=== PATIENT | female | born 1975 | race Caucasian/White ===

== ENCOUNTER 2024-12-10 09:59 | Emergency (ER) | payer OTHER, SELFPAY ==
--- NOTE | ~2024-12-10 | US_ITS ---
EXAMINATION: US TRIPLEX LOWER EXTREMITY, RIGHT CLINICAL INFORMATION: Right lower extremity pain and swelling COMPARISON: None available. TECHNIQUE: Color-flow triplex imaging with spectral analysis and compression Doppler were performed on the right lower extremity. FINDINGS: Respiratory variation, normal compression and augmented flow are noted throughout the right lower extremity. The visualized common femoral vein, superficial femoral vein, profunda femoral vein, popliteal vein and midcalf peroneal and posterior tibial venous segments show no evidence of deep venous thrombosis. There is no Gallegos's cyst. US/US venous duplex LE RT IMPRESSION: No evidence of deep venous thrombosis involving the right lower extremity. Electronically signed by: [place] Reece MD 12/10/2024 11:21 AM EDT
--- NOTE | ~2024-12-10 | XR_ITS ---
EXAMINATION: XR KNEE, RIGHT CLINICAL INFORMATION: pain COMPARISON: None available. TECHNIQUE: AP oblique and lateral views of the right knee. FINDINGS: Joint space narrowing involving mostly the medial compartment with sclerosis along the articular surface of the medial tibial plateau and medial femoral condyle. Small marginal osteophyte formation femoral condyles and tibial plateau. Posterior exostosis in the superior and inferior patella. Small joint effusion, suprapatellar bursa. No acute cortical disruption or alignment. No lytic or blastic lesions. XR/XR knee RT 4V IMPRESSION: Tricompartmental osteoarthrosis involving mostly the medial compartment. Small joint effusion, suprapatellar bursa. No acute fracture or dislocation. Electronically signed by: [place] Auguste MD 12/10/2024 11:02 AM EDT
[2024-12-10 10:21] VITALS: BP 151/102; PULSE 88; RESP 16; TEMP 36.6; O2SAT 96; BMI 38.8
--- NOTE | 2024-12-10 10:38 | ED_ITS ---
HPI - General Adult General Chief complaint: Extremity Injury, Lower Stated complaint: Athascopia, right leg pain Time Seen by Provider: 12/10/24 10:36 Source: patient Mode of arrival: ambulatory Limitations: no limitations History of Present Illness ED Provider: Joanie Best PA-C HPI narrative: Patient is a 49 year old assigned female at with a history of a right knee scope presenting to the emergency department today with right medial lower leg pain and knee pain. Patient states that over the last 2 days she has been having right knee pain and right medial lower leg pain. Patient states that she is a smoker. Patient denies any dizziness, lightheadedness, abdominal pain, nausea, vomiting, fever, chills, blurry vision, double vision, loss of vision, chest pain, difficulty breathing, shortness of breath, back pain, night sweats, pain with urination, increased urinary frequency, increased urinary urgency, blood in her urine or stool, syncope or a near syncopal episode, recent trauma or falls, bowel incontinence, bladder incontinence, or any other complaints at this time. Onset (ago): day(s) (2) Location: right and lower extremity Pain Consistency: constant Relieving factors: none Exacerbating factors: movement Associated symptoms: denies other symptoms Treatments prior to arrival: none Related Data Allergies Allergy/AdvReac Type Severity Reaction Status Date / Time minocycline Allergy Hives Verified 12/10/24 10:30 azelastine AdvReac Dizziness Verified 12/10/24 10:54 ciprofloxacin [From Cipro] AdvReac Palpitation Verified 12/10/24 10:52 s lisinopril AdvReac Dizziness Verified 12/10/24 10:53 oxybutynin AdvReac Headache Verified 12/10/24 10:53 prednisone AdvReac Palpitation Verified 12/10/24 10:54 s Review of Systems Constitutional: Constitutional: Reports no additional constitutional complaints, Denies chills, Denies fever(s) and Denies night sweats Eyes: Eyes: Reports no additional eye complaints, Denies blurry vision, Denies change in vision, Denies diplopia, Denies eye discharge, Denies loss of vision and Denies eye pain ENT: Denies dizziness Cardiovascular: Cardiovascular: Reports no additional cardiovascular complaints, Denies chest pain, Denies lightheadedness, Denies Loss of Consciousness and Denies dyspnea Respiratory: Respiratory: Reports no additional respiratory complaints and Denies dyspnea Gastrointestinal: Gastrointestinal: Reports no additional gastrointestinal complaints, Denies abdominal pain, Denies melena, Denies hematochezia, Denies change in bowel habits and Denies change in stool character Genitourinary: Genitourinary: Denies hematuria, Denies urinary frequency, Denies dysuria, Denies urinary incontinence, Denies urinary hesitancy and Denies urinary urgency Musculoskeletal: Musculoskeletal: Reports no additional musculoskeletal complaints, Denies numbness and Denies tingling Comments: right knee pain right lower leg pain Neurologic: Denies dizziness, Denies loss of vision, Denies numbness and Denies tingling Psychiatric: Psychiatric: Reports no additional psychiatric complaints Endocrine: Endocrine: Reports no additional endocrine complaints Hematologic/Lymphatic: Hematologic/Lymphatic: Reports no additional hematologic/lymphatic complaints Allergic/Immunologic: Allergic/Immunologic: Reports no additional allergic/immunologic complaints [facility] Past Medical History Attestation statement: The following information was validated with the patient. Source: old records reviewed and nursing notes reviewed Physical Exam ED Vital Signs: Vital Signs - 24 hr 12/10/24 10:21 12/10/24 12:04 Temperature 97.9 F 97.9 F Pulse Rate 88 87 Respiratory Rate 16 16 Blood Pressure 151/102 H 148/89 H Pulse Oximetry 96 97 Oxygen Delivery Method Room Air Room Air BMI result Body Mass Index 38.8 Const General: cooperative, no acute distress, alert and awake Nutritional Appearance: well nourished Orientation/consciousness: patient oriented x3 HENMT Head: Yes normal to inspection and Yes atraumatic Ears: hearing grossly normal bilaterally and external ears normal General nose exam: Normal external nose present, no nasal discharge noted and no epistaxis Face and sinus: Yes normal facial exam, No abrasion and No laceration Mouth: Normal oral and palatal mucosa present, no drooling and no muffled voice Eyes General: appearance normal, both eyes and all related structures Periorbital: periorbital findings normal Eyelids: Yes eyelids normal Conjunctivae: conjunctivae normal Pupils: Equal, round and reactive pupils present EOM: EOMs intact bilaterally Neck Neck: Yes normal visual inspection, Yes full ROM and Yes no lymphadenopathy Resp Effort & Inspection: normal respiratory effort and able to speak in complete sentences Neuro General: patient oriented x3, moves all extremities and CN's II-XI intact bilaterally Cranial nerves: Yes Equal, round and reactive pupils present Cognition (Neuro): normal cognition Extrem General: Yes normal to inspection, Yes full ROM and Yes capillary refill normal Psych Appearance: grossly normal Mental Status: mental status grossly normal Affect: normal affect Attitude: cooperative Thought process: Normal thought process present Thought content: Normal thought content present Insight: Good insight present (Psych) Medical Decision Making Medical Decision Making MDM Narrative: Patient is a 49 year old assigned female at with a history of a right knee scope presenting to the emergency department today with right medial lower leg pain and knee pain. Patient's physical exam was unremarkable. Patient's right knee x-ray showed no acute process but did show evidence of a small joint effusion and osteoarthritis. Patient's right lower leg US was negative for DVT. I explained my physical exam findings as well as all test results to the patient. I answered all questions asked by the patient. I offered the patient oral prednisone and she declined - stating she would prefer to follow up with the orthopedic team than take systemic steroids. I stressed the importance of the patient taking her medication as directed (either prescribed or as the over the counter packaging recommends). I stressed the importance of the patient following up with her primary care provider and the orthopedic team. I stressed the importance of the patient returning to the emergency department immediately if her symptoms were to worsen or if she were to develop any dizziness, shortness of breath, difficulty breathing, chest pain, blurry vision, loss of vision, nausea, vomiting, abdominal pain, fever, chills, back pain, or any other complaints. Patient verbalized agreement and understanding with this treatment plan and discharge. Differential Diagnosis Differential Diagnoses: The differential diagnosis associated with the presentation includes Right knee OA flare Right knee pain Right lower leg pain DVT Admission/Observation Consideration of admission/observation: Escalation of care including admission/observation considered Patient would have been admitted to the hospital had her work up had any findings where hospital admission was appropriate and her clinical presentation warranted hospital admission. Independent Interpretation I performed an independent interpretation of an: Plain X-Ray (Right knee) and Ultrasound (Right lower leg) Interpretation: My interpretation is in agreement with the radiologist's impression of these imaging studies. EXAMINATION: US TRIPLEX LOWER EXTREMITY, RIGHT CLINICAL INFORMATION: Right lower extremity pain and swelling COMPARISON: None available. TECHNIQUE: Color-flow triplex imaging with spectral analysis and compression Doppler were performed on the right lower extremity. FINDINGS: Respiratory variation, normal compression and augmented flow are noted throughout the right lower extremity. The visualized common femoral vein, superficial femoral vein, profunda femoral vein, popliteal vein and midcalf peroneal and posterior tibial venous segments show no evidence of deep venous thrombosis. There is no Gallegos's cyst. US/US venous duplex LE RT IMPRESSION: No evidence of deep venous thrombosis involving the right lower extremity. Electronically signed by: [place] Reece MD 12/10/2024 11:21 AM EDT RP Dictated By: North Reece MD Signed By: Electronically signed by North Reece MD 12/10/24 1121 EXAMINATION: XR KNEE, RIGHT CLINICAL INFORMATION: pain COMPARISON: None available. TECHNIQUE: AP oblique and lateral views of the right knee. FINDINGS: Joint space narrowing involving mostly the medial compartment with sclerosis along the articular surface of the medial tibial plateau and medial femoral condyle. Small marginal osteophyte formation femoral condyles and tibial plateau. Posterior exostosis in the superior and inferior patella. Small joint effusion, suprapatellar bursa. No acute cortical disruption or alignment. No lytic or blastic lesions. XR/XR knee RT 4V IMPRESSION: Tricompartmental osteoarthrosis involving mostly the medial compartment. Small joint effusion, suprapatellar bursa. No acute fracture or dislocation. Electronically signed by: [place] Auguste MD 12/10/2024 11:02 AM EDT RP Dictated By: Chico Lee MD Signed By: Electronically signed by Chico Renee MD 12/10/24 1104 Radiology Impression Discussion of test interpretation with radiology: I have reviewed the radiologist's reading. Discharge Plan Discharge Clinical Impression: Osteoarthritis of knee Patient Disposition: Home, Self-Care Instructions: Osteoarthritis (DC) Additional Instructions: Your x-ray of the right knee showed evidence of arthritis and a small joint effusion. Your right lower leg US showed no evidence of clot. Follow up with your primary care provider and the orthopedic team. Return to the emergency department immediately if your symptoms worsen or if you develop any numbness, tingling, dizziness, shortness of breath, difficulty breathing, chest pain, blurry vision, loss of vision, nausea, vomiting, abdominal pain, fever, chills, back pain, or any other complaints. Please see the information below about our Patient Portal. If you are not yet enrolled in the [facility] Patient Portal, you will receive an enrollment email invitation following your visit to any [facility] setting. You may also self-enroll in the Patient Portal by visiting our website: [email or web address] The following information is required to access the Patient Portal: - Your [facility] Medical Record Number - Your personal home email address (must match what is in your electronic medical record, Registration staff can assist with this) - Name - Date of Capabilities of the Patient Portal: - Message some providers - View upcoming appointments - Access your health summary, medical history, and visit history - View current conditions and allergies - View procedure and lab results - View your medications, including guidelines, side effects, and precautions - Complete pre-appointment questionnaires requested by your provider - Ready summary reports of your office visits and procedures To access the Patient Portal Mobile Phi, follow these directions: - Search [place] in the Phi Store or [employer] Store - Download the Phi - Search for [facility] - Enter your login/password Referrals: [facility] Family Medicine [Provider Group] (Call to establish and follow up with a primary care provider. If you already have a primary care provider, please follow up with them.) [facility] Primary [facility], [place] [Provider Group] (Call to establish and follow up with a primary care provider. If you already have a primary care provider, please follow up with them.) [facility], [place] [Provider Group] (Call to establish and follow up with a primary care provider. If you already have a primary care provider, please follow up with them.) [facility] Primary [facility], [facility] [Provider Group] (Call to establish and follow up with a primary care provider. If you already have a primary care provider, please follow up with them.) [facility] Primary Care, [facility] [Provider Group] (Call to establish and follow up with a primary care provider. If you already have a primary care provider, ple ase follow up with them.) [facility] Orthopedic Surgeons [Provider Group] (Call to establish and follow up with an orthopedic provider. ) Stand Alone Forms: Work/School Release Interventions: ED Discharge Assessment Last Done: 12/10/24 12:04 Discharge Date/Time: 12/10/24 12:08 Print Language: Turkish
[2024-12-10 12:04] VITALS: BP 148/89; PULSE 87; RESP 16; TEMP 36.6; O2SAT 97
--- OUTSIDE RECORDS SUMMARY | 2024-12-10 12:14 | XMS_ITS | Clinical Summary ---
Author Organization [facility] Address [address] [place] [address] Phone Care Team Providers Care Photo Finisher Name Role Phone Nicol Trent MD Primary Care Pr ovider Allergies Active Allergy Reactions Criticality Noted Date Comments Azelastine Dizziness Low 04/11/2018 PRURITUS, DIZZINESS WITH NASAL SPRAY Ciprofloxacin Other Low 03/06/2018 Increased heartrate Dexamethasone Itching High 04/14/2015 Lisinopril Dizziness Medium 02/01/2022 Minocycline Hcl Hives High 07/12/2005 Oxybutynin Other Low 04/14/2015 Headache, back pain Prednisone Rash High 06/13/2014 Chest pain & palpitations Sulfamethoxazole-Trimethopr im Itching High 03/27/2018 Medications azelastine (ASTELIN) 137 mcg (0.1 %) nasal spray 1 [place] by Nasal route daily. 4 Active cholecalcifero l (VITAMIN D-3) 25 mcg (1,000 unit) capsule Take 1 Cap by mouth daily. Active loratadine (CLARITIN) 10 mg tablet Take 10 mg by mouth daily. Active olopatadine (PATANASE) 0.6 % spray,non-aero raman nasal spray 2 Sprays by Nasal route 2 times daily. 4 Active amLODIPine (NORVASC) 2.5 mg tablet Take 1 tablet (2.5 mg total) by mouth 1 (one) time each day. 90 tablet 1 5 01/18/20 25 Active cromolyn (OPTICROM) 4 % ophthalmic solution INSTILL 1 DROP INTO BOTH EYES 4 TIMES DAILY. 10 mL 1 5 Active cromolyn (OPTICROM) 4 % ophthalmic solution INSTILL 1 DROP INTO BOTH EYES 4 TIMES DAILY. 10 mL 1 5 11/21/19 25 Discontinued cephalexin (KEFLEX) 500 mg capsule Take 1 capsule (500 mg total) by mouth 2 (two) times a day for 10 days. 20 each 5 12/01/19 25 Active Problems Problem Noted Date Diagnosed Date Relative polycythemia 11/20/2024 Numerous skin moles 05/15/2024 Assessment & Plan (05/15/2024 4:29 PM EST): Orders: Ambulatory referral to Dermatology; Future Bilateral kidney stones 06/16/2023 Allergic conjunctivitis 02/14/2023 Assessment & Plan (05/15/2024 4:29 PM EST): Continue cromolyn eye drops daily Fatty liver disease, nonalcoholic 12/14/2022 Assessment & Plan (05/15/2024 4:29 PM EST): Orders: Comprehensive metabolic panel; Future Ambulatory referral to Gastroenterology; Future Gallbladder polyp 12/14/2022 Assessment & Plan (05/15/2024 4:29 PM EST): US done in November showed stability Hyperlipidemia 12/14/2022 Assessment & Plan (05/15/2024 4:29 PM EST): Orders: Lipid panel with reflex to direct LDL; Future Thyroid stimulating hormone with reflex to free t4 and free t3; Future Osteoarthritis of right knee 11/14/2022 Assessment & Plan (05/15/2024 4:29 PM EST): Continue PT Class 2 obesity 10/11/2022 Abnormal uterine bleeding 04/21/2022 Overview (03/21/2024): Last Assessment & Plan: Discussed normal frequency and length of menses Counseled on the effects of stress, changes in sleep, diet, and exercise on the endocrine system GC/CT done today to r/o STI TSH ordered Pelvic ultrasound ordered to r/o structural causes. Discussed with patient potential causes of abnormal bleeding including , infection, trauma, anovulation, polyps, fibroids, coagulation defects, hyperplasia, and malignancies and importance of follow-up. She will return for endometrial biopsy. Prediabetes 11/30/2020 Assessment & Plan (05/15/2024 4:29 PM EST): Orders: Hemoglobin A1c; Future Eczema 07/17/2018 Hypertension 12/25/2017 Assessment & Plan (05/15/2024 4:29 PM EST): Orders: CBC and differential; Future Comprehensive metabolic panel; Future Thyroid stimulating hormone with reflex to free t4 and free t3; Future Female stress incontinence 03/31/2015 Overview (03/21/2024): Seeing urology Hyperactivity of bladder 03/31/2015 Snoring 08/24/2011 Overview (03/21/2024): 2-12 polysomnogram neg for MAN 04/2020 Home Sleep Study did not reveal sleep apnea or nocturnal hypoxia. Depressive disorder 05/01/2008 Allergic rhinitis 04/24/2006 Assessment & Plan (05/15/2024 4:29 PM EST): Continue patanase nasal spray PRN, loratadine and azelastine 137mcg Encounters Date Type Department Care Team Description 12/10/2024 Telephone Adult Medicine [address] [phone] Nicol Trent MD Leg Pain 11/20/2024 8:30 AM EDT Office Visit Adult Medicine [address] [phone] Gissell Echevarria PA Primary hypertension (Primary Dx); Prediabetes; Mixed hyperlipidemia; Allergic rhinitis, unspecified seasonality, unspecified trigger; Relative polycythemia; Cellulitis of earlobe, left 10/15/2024 9:45 AM EDT Office Visit [facility] [address] [place] [phone] Trey Low MD Relative polycythemia (Primary Dx) 10/01/2024 10:15 AM EDT Office Visit [facility] [address] [place] [phone] Trey Low MD Polycythemia from Last 3 Months Immunizations Name Administration Dates Next Due Hepatitis B (Ivhfxzu-H-Rcxke , Recombivax HB-Adult) 19yo and older 08/16/2023,03/15/2023,02/15/2023 Influenza Quadravalent, MDCK , 0.5ml, preservative free (Flucelvax) 6mo and older 05/11/2023,03/12/2020,04/19/2019,2017 Influenza Quadravalent, MDCK , 0.5ml, with preservative (Flucelvax) 6mo and older 04/30/2022,04/30/2021 Influenza trivalent, 0.5mL, preservative free (Fluarix; FluLaval; Fluzone) ages 6mo and older (Afluria) 3 years and older 04/17/2012 Influenza trivalent, with preservative (Fluzone; Afluria) 6mo and older 04/17/2016,06/05/2015,05/06/2014,2012,06/07/2011,07/05/2007,05/21/2006,1 Influenza, Unspecified 04/26/2023,03/26/2022,10/2020 MMR, measles mumps and rubel la Live (Priorix; M-M-R II) 12mo and older 08/06/2021,07/08/2021 Td Tetanus diptheria (Tdvax) 7yo and older 10/18/2017 Tdap Tetanus diptheria acell ular pertussis (Boostrix; Adacel) 7yo and older 07/05/2007 Varicella live (Varivax) 12m o and older 08/06/2021,07/08/2021 Surgical History Surgery Date Site/Laterality Comments OTHER SURGICAL HISTORY 06/26/2014 Right PROCEDURE: VT EXC LESION TENDON SHEATH/CAPSULE W/SYNVCT FOOT; COMMENT: Dr Pizano for right plantar fascitis OTHER SURGICAL HISTORY 06/26/2015 Left PROCEDURE: VT EXC LESION TENDON SHEATH/CAPSULE W/SYNVCT FOOT; COMMENT: left foot plantar fasciitis KNEE SURGERY 02/2022 PROCEDURE: HISTORICAL KNEE SURGERY FOOT SURGERY Bilateral plantar fascia Medical History Medical History Date Comments Allergic rhinitis due to oth er allergen 04/24/2006 DX:Allergic rhinitis due to other allergen History of gestational diabetes DX:History of gestational diabetes Essential hypertension DX:Essent ial hypertension Family History Medical History Relation Name Comments Other: Cancer (mouth) Brother thyroi d disorder, substance use Lung cancer Father Other cancer Father Lung age 62 Diabetes Paternal Grandmother Stroke Paternal Grandmother Breast cancer Neg Hx Colon cancer Neg Hx Ovarian cancer Neg Hx Uterine cancer Neg Hx Relation Name Status Comments Brother Daughter Alive A&W x 2 Father Alive high cholestero l, lobectomy due to emphysema, aaa, Maternal Grandfather Maternal Grandmother CAD Mother Alive HTN, arthritis Paternal Grandfather ? shahzad roberts WWII Paternal Grandmother [place] - an gioplasty; DMII Son Alive A&W Social History Tobacco Use Types Packs/Day Years Used Date Smoking Tobacco: Every Day Cigarettes Last attempted to quit: 09/15/2022 Smokeless Tobacco: Never Tobacco Cessation:Ready to Q uit: Not Asked; Counseling Given: Not Answered Alcohol Use Standard Drinks/Week Comments Yes 1 (1 standard drink = 0.6 oz pur e alcohol) Housing Instability Answer Date Recorde d Are you worried that in the next 2 months you may not have stable housing? No 05/15/2024 Food Access & Nutrition Answer Date Rec orded Do you have access to a vari ety of food including fruits and vegetables? Yes 05/15/2024 Health Literacy Answer Date Recorded How often do you need to hav e someone help you when you read instructions, pamphlets, or other written material from your doctor or pharmacy? Never 05/15/2024 Caregiver: How often do you need to have someone help you when you read instructions, pamphlets, or other written material from your doctor or pharmacy? Not on file 05/15/2024 Financial Risk Answer Date Recorded How hard is it for you to pa y for the very basics like food, housing, medical care, and air conditioning / heating? Not very hard 05/15/2024 Transportation Answer Date Recorded Has the lack of transportati on kept you from meetings, work, or from getting things needed for daily living? No Has the lack of transportati on kept you from medical appointments or from getting medications? No 05/15/2024 Social Isolation Answer Date Recorded How often do you feel lonely or isolated from th ose around you? Never 05/15/2024 Food Risk Answer Date Recorded Within the past 12 months we worried whether our food would run out before we got money to buy more. Never true 05/15/2024 Within the past 12 months th e food we bought just didn't last and we didn't have money to get more. Never true 05/15/2024 Dependent Care Answer Date Recorded Do you need help finding or paying for care for your loved ones. For example, childcare center administrator or elderly care for an older adult? No 05/15/2024 Education Answer Date Recorded Do you think completing more education or training, like finishing a GED, going to college, or learning a trade, would be helpful for you? No 05/15/2024 Employment and Income Answer Date Recor ded During the last four weeks, have you been actively looking for work? No 05/15/2024 Living Situation Answer Date Recorded What is your living situation? 1 07/15/2023 Comments No Sex and Gender Information Value Date Recorded Sex Assigned at Not on file Legal Sex Female 8:30 PM EST Gender Identity Not on file Sexual Orientation Not on file Obstetrics History Para Term AB IAB SAB Ectopic Multiple Livin g Live Births 3 3 3 3 Date Outcome GA Total Labor Labor/2nd/3rd Weight Sex Type Anes PTL Maxine A1 A5 Name Clin Term Term Term Last Filed Vital Signs Vital Sign Reading Time Taken Comments Blood Pressure 131/98 11/20/2024 8:18 AM EDT Pulse 102 11/20/2024 8:08 AM EDT Temperature 36.2 ??C (97.2 ??F) 11/20/2024 8:08 AM ED T Respiratory Rate 18 11/20/2024 8:08 AM EDT Oxygen Saturation 94% 11/20/2024 8:08 AM EDT Inhaled Oxygen Concentration - - Weight 116 kg (256 lb 8 oz) 11/20/2024 8:08 AM E DT Height 170.2 cm (5' 7 ) 11/20/2024 8:08 AM EDT Body Mass Index 40.17 11/20/2024 8:08 AM EDT Plan of Treatment Upcoming Encounters Date Type Department Care Team (Late st Contact Info) Description 01/03/2025 8:30 AM EDT Office Visit Adult Medicine [facility] [address] [place] [phone] Gissell Echevarria PA [address] [place] [address] 02/25/2025 9:30 AM EDT Appointment [facility] [address] [place] [phone] Eloisa Conklin MD [address] [facility] [address] [place] [address] Health Maintenance Due Date Last Done Comments Pneumococcal Vaccine: 50+ Years (1 of 2 - PCV) 1992 Zoster Vaccines (1 of 2) 10/01/2021 08/06/2021, 06/26 Colorectal Cancer Screening: Colonoscopy 06/04/2022 Depression Screening 12/21/2024 12/22/2023 Social Influencers of Health Screening 05/15/2025 05/15/2024 Hypertension/CHF/CAD Annual BMP Blood Test 11/20/2025 11/20/2024, 05/17/2024, 03/18/2024, Additional history exists Breast Cancer Screening 08/28/2026 08/29/19, 08/18/2023, 08/16/2022, Additional history exists Cervical Cancer Screening: HPV 04/21/2027 04/21/2022 DTaP,Tdap,and Td Vaccines (3 - Td or Tdap) 10/19/2027 10/18/2017, 07/05/2007 Cholesterol Screening (Lipid Panel) 05/17/2029 05/17/2024, 12/22/2023, 12/22/2023 COVID-19 Vaccine Discontinued 08/21/2020, 07/19/2020 MMR Vaccines Aged Out 08/06/2021, 07/08/2021 No lo nger eligible based on patient's age to complete this topic Varicella Vaccines Aged Out 08/06/2021, 07/08/2021 No longer eligible based on patient's age to complete this topic Hepatitis B Vaccines Completed 08/16/2023, 03/15/2023, 02/15/2023 Influenza Vaccine Completed 03/18/2024, , 04/26/2023, Additional history exists HIV Screening Completed 05/17/2024 Hepatitis C Screening Completed 05/17/2024 HIB Vaccines Aged Out No longer eligi ble based on patient's age to complete this topic HPV Vaccines Aged Out No longer eligi ble based on patient's age to complete this topic Hepatitis A Vaccines Aged Out No long er eligible based on patient's age to complete this topic IPV Vaccines Aged Out No longer eligi ble based on patient's age to complete this topic Meningococcal ACWY Vaccine Aged Out N o longer eligible based on patient's age to complete this topic Meningococcal B Vaccine Aged Out No l onger eligible based on patient's age to complete this topic Pneumococcal Vaccine: Pediatrics (0 to 5 Years) and At-Risk Patients (6 to 64 Years) Discontinued RSV Immunization Patients Under 20 months Aged Out No longer eligible based on patient's age to complete this topic Procedures Procedure Name Priority Date/Time Associated Diagnosis Comments BASIC METABOLIC PANEL Routine 11/20/2024 9:06 AM EDT Primary hypertension HEMOGLOBIN A1C Routine 11/20/2024 9:06 AM EDT Prediabetes CBC WITH AUTO DIFFERENTIAL Routine 10/01/2024 10:52 AM EDT Polycythemia RETICULOCYTE COUNT Routine 10/01/2024 10 :52 AM EDT Polycythemia ERYTHROPOIETIN Routine 10/01/2024 10:52 AM EDT Polycythemia CBC AND DIFFERENTIAL Routine 10/01/2024 10:52 AM EDT Polycythemia MG MAMMO DIGITAL SCREENING W LEN BILAT Routine 08/28/2024 8:30 AM EST Encounter for screening mammogram for breast cancer HEPATITIS C ANTIBODY Routine 05/17/2024 8:00 AM EST Need for hepatitis C screening test HIV 1, 2 ANTIBODY, P24 ANTIGEN WITH REFLEX TO DIFFERENTIATION Routine 05/17/2024 8:00 AM EST Encounter for screening for HIV LIPID PANEL WITH REFLEX TO DIRECT LDL Routine 05/17/2024 8:00 AM EST Dyslipidemia DEPRESSION SCREENING Routine 12/22/2023 HPV Routine 04/21/2022 from Last 3 Months or Most Recently Relevant to Health Maintenance Results * Hemoglobin A1c (11/20/2024 9:06 AM EDT) Hemoglobin A1C 5.7 <6.5 % LAB CHEMISTRY METHOD 11/20/2024 10:24 AM EDT [facility] Mean Bld Glu Estim. 117 mg/dL LAB CHEMISTRY METHOD 11/20/2024 10:24 AM EDT [facility] Blood Venous blood specimen / Unknown Venipuncture / Unknown 11/20/2024 9:06 AM EDT 11/20/2024 9:06 AM EDT us Gissell MOSCOSO LAB BLOOD ORDERABLES Final Re sult [facility] [address] [place] [address], [place] [phone] * (ABNORMAL) Basic metabolic panel (11/20/2024 9:06 AM EDT) Sodium 138 133 - 145 mmol/L LAB CHEMISTRY METHOD 11/20/2024 5:25 PM EDT [facility] Potassium 4.4 3.5 - 5.5 mmol/L LAB CHEMISTRY METHOD 11/20/2024 5:25 PM EDT [facility] Chloride 107 96 - 110 mmol/L LAB CHEMISTRY METHOD 11/20/2024 5:25 PM [facility] CO2 23 21 - 32 mmol/L LAB CHEMISTRY METHOD 11/20/2024 5:25 PM [facility] Anion Gap 8 3 - 11 LAB [facility]STR[facility]/20[facility]24 [facility] Glucose 117(H) 70 - 100 mg/dL LAB CHEMISTRY METHOD 11/20/2024 5:25 PM [facility] BUN 9 5 - 25 mg/dL LAB CHEMISTRY METHOD 11/20/2024 5:25 PM [facility] Creatinine 0.74 0.50 - 1.10 mg/dL LAB CHEMISTRY METHOD 11/20/2024 5:25 PM [facility] eGFR 98 >=60 mL/min/1. 73m2 LAB CHEMISTRY METHOD 11/20/2024 5:25 PM T [facility] Comment:Calculation based on the Chronic Kidney Disease Epidemiology Collaboration (CKD-EPI) equation refit without adjustment for race. BUN/Creatinine Ratio 12.2 LAB CHEMISTRY METHOD 11/20/2024 5:25 PM [facility] Calcium 9.3 8.5 - 10.5 mg/dL LAB CHEMISTRY METHOD 11/20/2024 5:25 PM [facility] Blood Venous blood specimen / Unknown Venipuncture / Unknown 11/20/2024 9:06 AM EDT 11/20/2024 9:06 AM EDT us Gissell MOSCOSO LAB BLOOD ORDERABLES Final Re sult [facility] [address] [place] [address], * (ABNORMAL) CBC auto differential (10/01/2024 10:52 AM EDT) [facility] WBC 9.7 4.8 - 10.8 K/mcL LAB HEMETOLOGY METHOD 10/01/2024 1:51 PM [facility] RBC 5.50(H) 3.80 - 4.80 M/mcL LAB HEMETOLOGY METHOD 10/01/2024 1:51 PM [facility] Hemoglobin 16.2(H) 11.5 - 16.0 g/dL LAB HEMETOLOGY METHOD 10/01/2024 1:51 PM [facility] Hematocrit 49.8(H) 35.0 - 47.0 % LAB HEMETOLOGY METHOD 10/01/2024 1:51 PM [facility] MCV 90.1 79.0 - 98.0 FL LAB HEMETOLOGY METHOD 10/01/2024 1:51 PM [facility] MCH 29.3 27.0 - 32.0 pcg LAB HEMETOLOGY METHOD 10/01/2024 1:51 PM [facility] MCHC 32.5 32.0 - 37.0 g/dL LAB HEMETOLOGY METHOD 10/01/2024 1:51 PM [facility] RDW 12.1 11.0 - 15.0 % LAB HEMETOLOGY METHOD 10/01/2024 1:51 PM [facility] Platelets 301 130 - 400 K/mcL LAB HEMETOLOGY METHOD 10/01/2024 1:51 PM [facility] MPV 9.9 7.0 - 11.0 FL LAB HEMETOLOGY METHOD 10/01/2024 1:51 PM [facility] NRBC 0.0 <1.0 % LAB HEMETOLOGY METHOD 10/01/2024 1:51 PM [facility] NRBC Absolute 0.00 <0.10 K/mcL LAB HEMETOLOGY METHOD 10/01/2024 1:51 PM [facility] Neutrophils Relative 55.5 % LAB HEMETOLOGY METHOD 10/01/2024 1:51 PM [facility] Lymphocytes Relative 31.0 % LAB HEMETOLOGY METHOD 10/01/2024 1:51 PM [facility] Monocytes Relative 8.1 % LAB HEMETOLOGY METHOD 10/01/2024 1:51 PM [facility] Eosinophils Relative 3.9 % LAB HEMETOLOGY METHOD 10/01/2024 1:51 PM [facility] Basophils Relative 1.0 % LAB HEMETOLOGY METHOD 10/01/2024 1:51 PM [facility] Immature Granulocytes Relative 0.5 % LAB HEMETOLOGY METHOD 10/01/2024 1:51 PM [facility] Neutrophils Absolute 5.35 1.50 - 7.00 K/mcL LAB HEMETOLOGY METHOD 10/01/2024 1:51 PM [facility] Lymphocytes Absolute 2.99 1.00 - 5.00 K/mcL LAB HEMETOLOGY METHOD 10/01/2024 1:51 PM [facility] Monocytes Absolute 0.78 0.20 - 1.00 K/mcL LAB HEMETOLOGY METHOD 10/01/2024 1:51 PM [facility] Eosinophils Absolute 0.38 0.00 - 0.50 K/mcL LAB HEMETOLOGY METHOD 10/01/2024 1:51 PM [facility] Basophils Absolute 0.10 0.00 - 0.20 K/mcL LAB HEMETOLOGY METHOD 10/01/2024 1:51 PM [facility] Immature Granulocytes Absolute 0.05(H) 0.00 - 0.03 K/mcL LAB HEMETOLOGY METHOD 10/01/2024 1:51 PM [facility] Blood Venous blood specimen / Unknown Venipuncture / Unknown 10/01/2024 10:52 AM EDT 10/01/2024 1:51 PM EDT Trey Low MD LAB BLOOD ORDERABLES Final R esult Performing Organization Address City/[facility]/ZIP Co de Phone Number [facility] [address] [place] [address], * Erythropoietin (10/01/2024 10:52 AM EDT) Erythropoietin 4.4 2.6 - 18.5 mIU/mL 10/04/2024 11:50 AM EDT [facility] Comment: Test performed at [facility], [address], [place], [place] ??[address] ? [phone] Tabitha Cowan MD, PhD - [employer] Operator Blood Venous blood specimen / Unknown Venipuncture / Unknown 10/01/2024 10:52 AM EDT 10/01/2024 1:33 PM EDT Trey Low MD LAB BLOOD ORDERABLES Final R esult Performing Organization Address City/[facility]/ZIP Co de Phone Number [facility] [address] [place] [address] * (ABNORMAL) Reticulocyte count (10/01/2024 10:52 AM EDT) Retic Ct Abs 0.100(H) 0.030 - 0.090 M/mcL LAB HEMETOLOGY METHOD 10/01/2024 1:51 PM EDT [facility] Retic Ct Pct 1.7 0.7 - 1.7 % LAB HEMETOLOGY METHOD 10/01/2024 1:51 PM EDT [facility] Immature Retic Fract 9.2 2.3 - 15.9 % LAB HEMETOLOGY METHOD 10/01/2024 1:51 PM EDT [facility] Reticulocyte Hemoglobin 33.2 >29.0 pcg LAB HEMETOLOGY METHOD 10/01/2024 1:51 PM EDT [facility] Blood Venous blood specimen / Unknown Venipuncture / Unknown 10/01/2024 10:52 AM EDT 10/01/2024 1:51 PM EDT us Trey Low MD LAB BLOOD ORDERABLES Final R esult [facility] [address] [place] [address], [place] [phone] * MG Mammo Digital Screening w Len bilat (08/28/2024 8:30 AM EST) Anatomical Region Laterality Modality Breast Bilateral Mammography 08/28/2024 3:33 PM EST Impressions 08/28/2024 3:37 PM EST No mammographic evidence for malignancy. BI-RADS CATEGORY: 1 - NEGATIVE RECOMMENDATION: Screening bilateral mammogram is recommended in 1 year. Mammo Location: [facility], [address] [place] [address], [id number], . -------- FINAL REPORT -------- Dictated By: Mellissa Orta Dictated Date: 08/28/2024 15:33 ET Assigned Physician: Mellissa Orta Reviewed and Electronically Signed By: Mellissa Orta Signed Date: 08/28/2024 15:37 ET Workstation ID: [id number] Transcribed By: Self Edit Transcribed Date: 08/28/2024 15:33 ET Narrative 08/28/2024 3:37 PM EST Bilateral screening mammogram. CLINICAL: 48 years old, Female, routine annual exam. COMPARISON: Prior mammograms, latest from 08/18/2023. ?? TECHNIQUE: Bilateral MLO and CC views were obtained digitally with 2-D C views and 3-D mammogram (digital breast tomosynthesis). Computer-aided detection was utilized in evaluation of this exam (CAD). FINDINGS: There is no evidence of suspicious mass or architectural distortion. ??No worrisome calcifications are evident. ??There has been no significant change from prior exam(s). ?? BREAST DENSITY: C - The breasts are heterogeneously dense which may obscure small masses. Procedure Note Mellissa Orta MD - 08/28/2024 Bilateral screening mammogram. CLINICAL: 48 years old, Female, routine annual exam. COMPARISON: Prior mammograms, latest from 08/18/2023. TECHNIQUE: Bilateral MLO and CC views were obtained digitally with 2-D Cviews and 3-D mammogram (digital breast tomosynthesis). Computer-aideddetection was utilized in evaluation of this exam (CAD). FINDINGS: There is no evidence of suspicious mass or architectural distortion. Noworrisome calcifications are evident. There has been no significantchange from prior exam(s). BREAST DENSITY: C - The breasts are heterogeneously dense which mayobscure small masses. IMPRESSION: No mammographic evidence for malignancy. BI-RADS CATEGORY: 1 - NEGATIVE RECOMMENDATION: Screening bilateral mammogram is recommended in 1 year. Mammo Location: [facility], [address] [place] [address], [id number], . -------- FINAL REPORT -------- Dictated By: Mellissa Orta Dictated Date: 08/28/2024 15:33 ET Assigned Physician: Mellissa Orta Reviewed and Electronically Signed By: Mellissa Orta Signed Date: 08/28/2024 15:37 ET Workstation ID: [id number] Transcribed By: Self Edit Transcribed Date: 08/28/2024 15:33 ET us Nicol Trent MD [facility] BI PROCEDURE S Final Result * Hepatitis C antibody (05/17/2024 8:00 AM EST) Hepatitis C Antibody Negative Negative LAB CHEMISTRY METHOD 05/17/2024 11:36 AM EST [facility] Blood Venous blood specimen / Unknown Venipuncture / Unknown 05/17/2024 8:00 AM EST 05/17/2024 8:00 AM EST Nicol Trent MD LAB BLOOD ORDERA BLES Final Result Performing Organization Address [facility]/ZIP Co de Phone Number [facility] [address] [place] [address], [place] [phone] * HIV 1,2 antibody, p24 antigen with reflex to differentiation (05/17/2024 8:00 AM EST) Pathologist [facility] HIV Combo AB/AG Negative Negative LAB CHEMISTRY METHOD 05/17/2024 11:37 AM EST [facility] Blood Venous blood specimen / Unknown Venipuncture / Unknown 05/17/2024 8:00 AM EST 05/17/2024 8:00 AM EST Narrative [facility] - 05/17/2024 11:37 AM EST This assay is a 4th generation assay allowing for earlier detection of HIV infection by detecting the presence of the HIV-1 p24 antigen as well as the traditional antibodies to HIV type 1 (including group O) and type 2. ??Use of a 4th generation assay is the current CDC recommendation for HIV screening. Nicol Trent MD LAB BLOOD ORDERA BLES Final Result Performing Organization Address [facility]/ZIP Co de Phone Number [facility] [address] [place] [address], [place] [phone] * (ABNORMAL) Lipid panel with reflex to direct LDL (05/17/2024 8:00 AM EST) [facility] Cholesterol 173 0 - 200 mg/dL LAB CHEMISTRY METHOD 05/17/2024 10:59 AM EST [facility] Triglycerides 172(H) 0 - 150 mg/dL LAB CHEMISTRY METHOD 05/17/2024 10:59 AM EST [facility] HDL 40 >=40 mg/dL LAB CHEMISTRY METHOD 05/17/2024 10:59 AM [facility] LDL Calculated 99 0 - 100 mg/dL LAB CHEMISTRY METHOD 05/17/2024 10:59 AM [facility] VLDL Cholesterol Jay 34.4 mg/dL LAB CHEMISTRY METHOD 05/17/2024 10:59 AM [facility] Non HDL Chol. (LDL+VLDL) 133 <145 mg/dL LAB CHEMISTRY METHOD 05/17/2024 10:59 AM [facility] Chol/HDL Ratio 4.3 0.0 - 4.4 LAB CHEMISTRY METHOD 05/17/2024 10:59 AM [facility] Blood Venous blood specimen / Unknown Venipuncture / Unknown 05/17/2024 8:00 AM EST 05/17/2024 8:00 AM EST Nicol Trent MD LAB BLOOD ORDERA BLES Final Result [facility] [address] [place] [address], * Depression Screening (12/22/2023) Pathologist [facility] Depression Screening Abstracted Historical Provider HEALTH MAINTENANCE Final Result * Cervical Cancer Screening: HPV (04/21/2022) [facility] Cervical Cancer Screening: HPV Abstracted ,negative Historical Provider HEALTH MAINTENANCE Final Result from Last 3 Months or Most Recently Relevant to Health Maintenance Insurance [employer] [facility] Care Teams Photo Finisher Relationship Specialty Start Date End Date Nicol Trent MD [address] [place], [place] PCP - General Internal Medicine 01/10/22
== END 2024-12-10 12:08 | disposition home or self-care (01) ==
PROVIDERS: Emergency Provider Emergency Medicine
DX: M17.11 Unilateral primary osteoarthritis, right knee (principal); M79.661 Pain in right lower leg
CPT/HCPCS: 73564; 93971; 99283; 99284

== ENCOUNTER → 2024-12-10 10:48 | Outpatient (BNV) | payer OTHER, SELFPAY | PROVIDERS: Emergency Provider Emergency Medicine; Visit Provider Radiology Diagnostic Radiology | DX: R22.41 Localized swelling, mass and lump, right lower limb (principal); M17.11 Unilateral primary osteoarthritis, right knee | CPT/HCPCS: 73564; 93971 ==